=== PATIENT | female | born 1940 | race Caucasian/White ===

== ENCOUNTER 2019-07-10 06:49 | Outpatient (CLI) | payer MEDICARE, BC ==
--- NOTE | 2019-07-10 08:22 | MRI ---
MRI LUMBAR SPINE WITHOUT CONTRAST: 07/10/2019 HISTORY: Chronic neck pain and back pain, spine pain. COMPARISON: None. TECHNIQUE: Multiplanar multisequence MR imaging of the lumbar spine obtained without contrast. FINDINGS: Sagittal STIR imaging demonstrates no focal area of osseous marrow edema. There is mid lumbar spine levoscoliosis. No focal area of abnormal STIR signal noted within the osseous structures to suggest the presence of focal marrow edema. On the basis of five lumbar type vertebral bodies, the conus medullaris terminates at the L1 level. T12-L1: Intervertebral disc height and signal intensity within normal limits. Mild bilateral facet hypertrophy with no significant central canal or neural foraminal stenosis. L1-L2: There is disc space narrowing and disc desiccation with mild disc bulge and mild bilateral fa cet hypertrophy. Anterior osteophyte formation noted. There is mild right neural foraminal stenosis. No significant central canal or left neural foraminal stenosis. L2-L3: There is disc space narrowing and disc desiccation with mild disc bulge and mild bilateral fa cet hypertrophy, right greater than left. No significant central canal or neural foraminal stenosis. L3-L4: There is disc space narrowing, disc desiccation, and mild disc bulge. There is mild bilatera l facet hypertrophy with mild/moderate right neural foraminal stenosis, mild left neural foraminal stenosis, and no significant central canal stenosis. L4-L5: There is disc space narrowing with disc desiccation and mild disc bulge. There is mild bilat eral facet hypertrophy. No significant central canal or neural foraminal stenosis. L5-S1: There is disc space narrowing with disc desiccation and mild disc bulge. No significant cent ral canal stenosis. Mild bilateral facet hypertrophy. Mild left neural foraminal stenosis. The visualized retroperitoneal structures demonstrate no acute findings. IMPRESSION: Lumbar spine levoscoliosis with associated degenerative change, as described above. Transcribed Date/Time: 07/10/2019 8:43 AM
--- NOTE | 2019-07-10 09:14 | MRI ---
MRI CERVICAL SPINE WITHOUT CONTRAST: INDICATIONS: Chronic neck pain and back pain. COMPARISON: None. FINDINGS: There is moderate modic endplate degenerative change seen at C5-C6. There is anterolisthesis of C2 on C3, retrolisthesis of C3 on C4 and mild anterolisthesis of C4 on C5. This is all degenerative in talia ure. The visualized aspects of the posterior fossa appear within normal limits. The visualized prevertebral soft tissues are normal appearing. C2-C3: There is severe left and moderate right facet joint degenerative change. There is mild left ne ural foraminal narrowing. There is a small central protrusion at C2-C3 without appreciable central ca nal narrowing. C3-C4: There is a broad-based bulge with facet hypertrophy and uncovertebral hypertrophy inducing mil d right neural foraminal narrowing and mild central canal narrowing with ventral cord effacement. C4-C5: There is advanced facet joint degenerative change. There is no appreciable central anal or xi ral foraminal narrowing. C5-C6: There is a broad-based bulge with facet hypertrophy inducing mild central canal narrowing and mild ventral effacement of the spinal cord. C6-C7: There is a broad-based bulge with facet hypertrophy. There is mild central canal narrowing wi th mild effacement of the ventral subarachnoid space. C7-T1: There is moderate to severe right and mild left facet joint degenerative change. There is no appreciable central canal or neural foraminal narrowing. IMPRESSION: 1. Moderate to severe spondylosis of the cervical spine with multilevel central canal narrowing, as d etailed above. 2. Mild right neural foraminal narrowing at C3-C4 and mild left neural foraminal narrowing at C2-C3. POS: [facility]
== END 2019-07-10 06:50 | disposition home or self-care (01) ==
LOC: SCSMRI 06:49
PROVIDERS: ATTEND Neurological Surgery
DX: M47.26 Other spondylosis with radiculopathy, lumbar region (principal); M54.2 Cervicalgia; M54.16 Radiculopathy, lumbar region; M47.812 Spondylosis without myelopathy or radiculopathy, cervical region; M47.813 Spondylosis without myelopathy or radiculopathy, cervicothoracic region; M48.02 Spinal stenosis, cervical region; M48.03 Spinal stenosis, cervicothoracic region; M47.27 Other spondylosis with radiculopathy, lumbosacral region; M41.9 Scoliosis, unspecified
CPT/HCPCS: 72141; 72148